=== PATIENT | female | born 1990 | race Two or more races ===

== ENCOUNTER 2018-01-15 15:48 | Emergency (ER) | payer SELFPAY ==
[2018-01-15] MEDS ORDERED: Ketorolac 30 MG/ML SDV IVPUSH ONE (17:03)
[2018-01-15] MEDS ORDERED: Sodium Chloride 0.9% 1,000 ML IV ONE (17:03)
[2018-01-15] MEDS ORDERED: Ondansetron 4 MG/2 ML SDV IVPUSH ONE (17:03)
--- NOTE | 2018-01-15 17:19 | EDM.PDOC ---
ED HPI GENERAL MEDICAL PROBLEM - General Chief Complaint: Abdominal Pain Stated Complaint: ABDOMINAL PAIN Time Seen by Provider: 01/15/18 16:06 Source of Information: Reports: Patient History Limitations: Reports: No Limitations - History of Present Illness INITIAL COMMENTS - FREE TEXT/NARRATIVE: HISTORY AND PHYSICAL: History of present illness: Patient is a 27-year-old female who presents to the emergency room with complaints of low abdominal pain, nausea and vomiting. She states she had an on 12/24/2017 at 19 weeks gestation. She states she had minimal cramping and bleeding post and has not had any complications or pain until this last week. Currently denies any vaginal bleeding or discharge. She denies any fever, chills, chest pain, shortness of breath or cough. Denies any constipation, diarrhea or dysuria. Review of systems: As per history of present illness and below otherwise all systems reviewed and negative. Past medical history: As per history of present illness and as reviewed below otherwise noncontributory. Surgical history: As per history of present illness and as reviewed below otherwise noncontributory. Social history: No reported history of drug or alcohol abuse. Family history: As per history of present illness and as reviewed below otherwise noncontributory. Physical exam: General: Well-developed and well-nourished 27-year-old female. Alert and oriented. Nontoxic appearing and in no acute distress. HEENT: Atraumatic, normocephalic, pupils equal and reactive bilaterally, negative for conjunctival pallor or scleral icterus, mucous membranes moist, throat clear, neck supple, nontender, trachea midline. No drooling or trismus noted. No meningeal signs Lungs: Clear to auscultation, breath sounds equal bilaterally, chest nontender. Heart: S1S2, regular rate and rhythm without overt murmur Abdomen: Soft, nondistended, mild tenderness to the mid suprapubic area. Negative for masses or hepatosplenomegaly. Negative for costovertebral tenderness. Pelvis: Stable nontender. Genitourinary: Deferred. Rectal: Deferred. Skin: Intact, warm, dry. No lesions or rashes noted. Extremities: Atraumatic, negative for cords or calf pain. Neurovascular unremarkable. Neuro: Awake, alert, oriented. Cranial nerves II through XII unremarkable. Cerebellum unremarkable. Motor and sensory unremarkable throughout. Exam nonfocal. Notes: Patient's physical exam is unremarkable with the exception of mild suprapubic tenderness. Vital signs are stable. We'll do routine lab work along with an ultrasound. Patient is agreeable to plan of care. Lab called and stated that they had a faint positive on their urine . She states they repeated this twice with the same result. She states that they recommend a serum be added at this time. Serum is positive; but this is likely due to her residual HCG from previous . Quant HCG added to labs for patient to follow up. US tech was made aware of her circumstances and will look for viable along with retained products Sounds shows no evidence of an intrauterine . Normal ovaries and adnexa. No gross free fluid. Endometrium is 8 mm in thickness and slightly hypervascular. No fluid or debris as noted in the endometrial canal. I did share with patient the diagnostic findings of today. I would like her to follow up with an AGRICULT[employer] EQUIPMENT SALES MANAGER in the next 1-2 days. This was explained in great detail with the patient. She voices understanding and is agreeable to plan of care. Denies any further questions or concerns at this time. Dr Bone was consulted on this case. She recommends that the patient have a CT of the abdomen and pelvis. She would like her to follow-up in one of the OB/ [facility] clinics for further evaluation and repeat quantative HCG. I did share this information with the patient. She declines the CT of the abdomen and pelvis. She states she was concerned that having an could "hurt my inside organs". She states she is returning to [place] and will follow up there. We discussed signs and symptoms that would prompt her to return to the emergency room. She voices understanding and is agreeable to plan of care. Denies any further questions or concerns at this time. Diagnostics: CBC, CMP, UA, HCGU, Transvaginal US, serum US Therapeutics: IV fluids, Zofran, Toradol Prescription: None Impression: Abdominal Pain Plan: 1. Tylenol and/or ibuprofen as needed for pain and fever management. 2. Please follow-up with AGRICULTURAL EQUIPMENT SALES MANAGER for women's care provider for further evaluation and management in the next 1-2 days. Return to the ED as needed and as discussed. Definitive disposition and diagnosis as appropriate pending reevaluation and review of above. lower abdomen Pain Score (Numeric/FACES): 6 - Related Data Allergies Allergy/AdvReac Type Severity Reaction Status Date / Time No Known Allergies Allergy Verified 01/15/18 16:53 Home Meds: Home Meds #103/Iron Fumarate/Fa [ ] 1 tab PO DAILY 01/15/18 [ History] Past Medical History A[employer] EQUIPMENT SALES MANAGER History: Reports: Spontaneous Social & Family History - Family History Family Medical History: Noncontributory - Tobacco Use Smoking Status *Q: Never Smoker - Recreational Drug Use Recreational Drug Use: No ED ROS GENERAL - Review of Systems Review Of Systems: ROS reveals no pertinent complaints other than HPI. ED EXAM, GI/ABD - Physical Exam Exam: See Below (See dictation) Course - Vital Signs Last Recorded V/S: Last Vital Signs Temp 98.3 F 01/15/18 16:54 Pulse 83 01/15/18 18:15 Resp 18 01/15/18 18:15 BP 111/59 L 01/15/18 18:15 Pulse Ox 100 01/15/18 16:54 - Orders/Labs/Meds Orders: Active Orders 24 hr Category Date Time Status Abdomen Pelvis w Cont [CT] Stat Exams 01/15/18 19:37 Ordered OB 1st Tri Sgl 1st Gest [US] Stat Exams 01/15/18 18:23 Taken Transvaginal Non OB [US] Stat Exams 01/15/18 17:19 Ordered Labs: Laboratory Tests 01/15/18 01/15/18 01/15/18 Range/Units 16:55 16:55 17:14 WBC 8.02 (4.0-11.0) K/uL RBC 4.64 (4.30-5.90) M/uL Hgb 13.2 (12.0-16.0) g/dL Hct 40.2 (36.0-46.0) % MCV 86.6 (80.0-98.0) fL MCH 28.4 (27.0-32.0) pg MCHC 32.8 (31.0-37.0) g/dL RDW Std Deviation 43.7 (28.0-62.0) fl RDW Coeff of Imer 14 (11.0-15.0) % Plt Count 304 (150-400) K/uL MPV 9.10 (7.40-12.00) fL Neut % (Auto) 58.4 (48.0-80.0) % Lymph % (Auto) 30.4 (16.0-40.0) % Sterling % (Auto) 7.7 (0.0-15.0) % Eos % (Auto) 3.0 (0.0-7.0) % Baso % (Auto) 0.5 (0.0-1.5) % Neut # (Auto) 4.7 (1.4-5.7) K/uL Lymph # (Auto) 2.4 (0.6-2.4) K/uL Sterling # (Auto) 0.6 (0.0-0.8) K/uL Eos # (Auto) 0.2 (0.0-0.7) K/uL Baso # (Auto) 0.0 (0.0-0.1) K/uL Nucleated RBC % 0.0 /100WBC Nucleated RBCs # 0 K/uL Sodium (136-145) mmol/L Potassium (3.5-5.1) mmol/L Chloride (98-107) mmol/L Carbon Dioxide (21.0-32.0) mmol/L BUN (7.0-18.0) mg/dL Creatinine (0.6-1.0) mg/dL Est Cr Clr Drug Dosing mL/min Estimated GFR (MDRD) ml/min Glucose (74-106) mg/dL Calcium (8.5-10.1) mg/dL Total Bilirubin (0.2-1.0) mg/dL AST (15-37) IU/L ALT (14-63) IU/L Alkaline Phosphatase (46-116) U/L Total Protein (6.4-8.2) g/dL Albumin (3.4-5.0) g/dL Globulin (2.0-3.5) g/dL Albumin/Globulin Ratio (1.3-2.8) HCG, Qual (NEG) HCG, Quant mIU/mL Urine Color YELLOW Urine Appearance CLEAR Urine pH 6.0 (5.0-8.0) Ur Specific [place] 1.025 (1.001-1.035) Urine Protein NEGATIVE (NEGATIVE) mg/dL Urine Glucose (UA) NEGATIVE (NEGATIVE) mg/dL Urine Ketones NEGATIVE (NEGATIVE) mg/dL Urine Occult Blood TRACE-INTACT (NEGATIVE) Urine Nitrite NEGATIVE (NEGATIVE) Urine Bilirubin NEGATIVE (NEGATIVE) Urine Urobilinogen 0.2 (<2.0) EU/dL Ur Leukocyte Esterase NEGATIVE (NEGATIVE) Urine RBC 0-2 (0-2/HPF) Urine WBC 0-2 (0-5/HPF) Ur Epithelial Cells MODERATE (NONE-FEW) Urine Bacteria FEW (NEGATIVE) Urine HCG, Qual POSITIVE (NEGATIVE) Blood Type 01/15/18 01/15/18 01/15/18 Range/Units 17:14 17:14 17:14 WBC (4.0-11.0) K/uL RBC (4.30-5.90) M/uL Hgb (12.0-16.0) g/dL Hct (36.0-46.0) % MCV (80.0-98.0) fL MCH (27.0-32.0) pg MCHC (31.0-37.0) g/dL RDW Std Deviation (28.0-62.0) fl RDW Coeff of Imer (11.0-15.0) % Plt Count (150-400) K/uL MPV (7.40-12.00) fL Neut % (Auto) (48.0-80.0) % Lymph % (Auto) (16.0-40.0) % Sterling % (Auto) (0.0-15.0) % Eos % (Auto) (0.0-7.0) % Baso % (Auto) (0.0-1.5) % Neut # (Auto) (1.4-5.7) K/uL Lymph # (Auto) (0.6-2.4) K/uL Sterling # (Auto) (0.0-0.8) K/uL Eos # (Auto) (0.0-0.7) K/uL Baso # (Auto) (0.0-0.1) K/uL Nucleated RBC % /100WBC Nucleated RBCs # K/uL Sodium 139 (136-145) mmol/L Potassium 4.0 (3.5-5.1) mmol/L Chloride 103 (98-107) mmol/L Carbon Dioxide 29.7 (21.0-32.0) mmol/L BUN 14 (7.0-18.0) mg/dL Creatinine 0.7 (0.6-1.0) mg/dL Est Cr Clr Drug Dosing 95.48 mL/min Estimated GFR (MDRD) > 60.0 ml/min Glucose 106 (74-106) mg/dL Calcium 8.8 (8.5-10.1) mg/dL Total Bilirubin 0.6 (0.2-1.0) mg/dL AST 19 (15-37) IU/L ALT 31 (14-63) IU/L Alkaline Phosphatase 66 (46-116) U/L Total Protein 7.9 (6.4-8.2) g/dL Albumin 4.0 (3.4-5.0) g/dL Globulin 3.9 H (2.0-3.5) g/dL Albumin/Globulin Ratio 1.0 L (1.3-2.8) HCG, Qual POSITIVE H (NEG) HCG, Quant mIU/mL Urine Color Urine Appearance Urine pH (5.0-8.0) Ur Specific [place] (1.001-1.035) Urine Protein (NEGATIVE) mg/dL Urine Glucose (UA) (NEGATIVE) mg/dL Urine Ketones (NEGATIVE) mg/dL Urine Occult Blood (NEGATIVE) Urine Nitrite (NEGATIVE) Urine Bilirubin (NEGATIVE) Urine Urobilinogen (<2.0) EU/dL Ur Leukocyte Esterase (NEGATIVE) Urine RBC (0-2/HPF) Urine WBC (0-5/HPF) Ur Epithelial Cells (NONE-FEW) Urine Bacteria (NEGATIVE) Urine HCG, Qual (NEGATIVE) Blood Type O POSITIVE 01/15/18 Range/Units 19:20 WBC (4.0-11.0) K/uL RBC (4.30-5.90) M/uL Hgb (12.0-16.0) g/dL Hct (36.0-46.0) % MCV (80.0-98.0) fL MCH (27.0-32.0) pg MCHC (31.0-37.0) g/dL RDW Std Deviation (28.0-62.0) fl RDW Coeff of Imer (11.0-15.0) % Plt Count (150-400) K/uL MPV (7.40-12.00) fL Neut % (Auto) (48.0-80.0) % Lymph % (Auto) (16.0-40.0) % Sterling % (Auto) (0.0-15.0) % Eos % (Auto) (0.0-7.0) % Baso % (Auto) (0.0-1.5) % Neut # (Auto) (1.4-5.7) K/uL Lymph # (Auto) (0.6-2.4) K/uL Sterling # (Auto) (0.0-0.8) K/uL Eos # (Auto) (0.0-0.7) K/uL Baso # (Auto) (0.0-0.1) K/uL Nucleated RBC % /100WBC Nucleated RBCs # K/uL Sodium (136-145) mmol/L Potassium (3.5-5.1) mmol/L Chloride (98-107) mmol/L Carbon Dioxide (21.0-32.0) mmol/L BUN (7.0-18.0) mg/dL Creatinine (0.6-1.0) mg/dL Est Cr Clr Drug Dosing mL/min Estimated GFR (MDRD) ml/min Glucose (74-106) mg/dL Calcium (8.5-10.1) mg/dL Total Bilirubin (0.2-1.0) mg/dL AST (15-37) IU/L ALT (14-63) IU/L Alkaline Phosphatase (46-116) U/L Total Protein (6.4-8.2) g/dL Albumin (3.4-5.0) g/dL Globulin (2.0-3.5) g/dL Albumin/Globulin Ratio (1.3-2.8) HCG, Qual (NEG) HCG, Quant 7.0 mIU/mL Urine Color Urine Appearance Urine pH (5.0-8.0) Ur Specific [place] (1.001-1.035) Urine Protein (NEGATIVE) mg/dL Urine Glucose (UA) (NEGATIVE) mg/dL Urine Ketones (NEGATIVE) mg/dL Urine Occult Blood (NEGATIVE) Urine Nitrite (NEGATIVE) Urine Bilirubin (NEGATIVE) Urine Urobilinogen (<2.0) EU/dL Ur Leukocyte Esterase (NEGATIVE) Urine RBC (0-2/HPF) Urine WBC (0-5/HPF) Ur Epithelial Cells (NONE-FEW) Urine Bacteria (NEGATIVE) Urine HCG, Qual (NEGATIVE) Blood Type Meds: Medications Discontinued Medications Generic Name Dose Route Start Last Admin Trade Name Janusz PRN Reason Stop Dose Admin Sodium Chloride 1,000 mls @ 999 mls/hr 01/15/18 17:03 01/15/18 17:14 Normal Saline IV 01/15/18 18:03 999 mls/hr STAT ONE Administration Ketorolac Tromethamine 30 mg 01/15/18 17:03 01/15/18 17:21 Toradol IVPUSH 01/15/18 17:04 30 mg ONETIME ONE Administration Ondansetron HCl 4 mg 01/15/18 17:03 01/15/18 17:16 Zofran IVPUSH 01/15/18 17:04 4 mg ONETIME ONE Administration Departure - Departure Time of Disposition: 19:52 Disposition: Home, Self-Care 01 Clinical Impression: History of Abdominal pain Qualifiers: Abdominal location: lower abdomen, unspecified Qualified Code(s): R10.30 - Lower abdominal pain, unspecified - Discharge Information Instructions: Abdominal Pain, Adult, [id number] Referrals: PCP,None [Primary Care Provider] - Forms: ED Department Discharge Additional Instructions: The following information is given to patients seen in the emergency department who are being discharged to home. This information is to outline your options for follow-up care. We provide all patients seen in our emergency department with a follow-up referral. The need for follow-up, as well as the timing and circumstances, are variable depending upon the specifics of your emergency department visit. If you don't have a primary care physician on staff, we will provide you with a referral. We always advise you to contact your personal physician following an emergency department visit to inform them of the circumstance of the visit and for follow-up with them and/or the need for any referrals to a consulting specialist. The emergency department will also refer you to a specialist when appropriate. This referral assures that you have the opportunity for follow-up care with a specialist. All of these measure are taken in an effort to provide you with optimal care, which includes your follow-up. Under all circumstances we always encourage you to contact your private physician who remains a resource for coordinating your care. When calling for follow-up care, please make the office aware that this follow-up is from your recent emergency room visit. If for any reason you are refused follow-up, please contact the [facility] at and asked to speak to the emergency department charge nurse. [facility] Primary Care: [facility] [address], [place] [address] [facility] [address] [place] [address] 1. Tylenol and/or ibuprofen as needed for pain and fever management. 2. Please follow-up with AGRICULTURAL EQUIPMENT SALES MANAGER for women's care provider for further evaluation and management in the next 1-2 days. Return to the ED as needed and as discussed. - My Orders Last 24 Hours: My Active Orders 01/15/18 17:19 Transvaginal Non OB [US] Stat 01/15/18 18:23 OB 1st Tri Sgl 1st Gest [US] Stat 01/15/18 19:37 Abdomen Pelvis w Cont [CT] Stat - Assessment/Plan Last 24 Hours: My Active Orders 01/15/18 17:19 Transvaginal Non OB [US] Stat 01/15/18 18:23 OB 1st Tri Sgl 1st Gest [US] Stat 01/15/18 19:37 Abdomen Pelvis w Cont [CT] Stat
[2018-01-15 17:42] LABS: CHLORIDE,CL 103 mmol/L (98-107); SODIUM,NA 139 mmol/L (136-145)
--- NOTE | 2018-01-16 09:32 | US ---
EXAM DATE: 01/15/18 PATIENT'S AGE: 27 Patient: BRYON KATHLEEN Facility: [place], [place] Site . Site : 1990 Study: US OB Pelvis [id number]/[id number] 6:52:35 PM Ordering Physician: Doctor Lee Final Report: INDICATION: Status post elective . At 19 weeks 3 weeks prior. Generalized abdominal pain. Positive urine . TECHNIQUE: Ultrasound OB pelvis transvaginal. Real time gtz scale imaging of the pelvis was performed. COMPARISON: None FINDINGS: Sonographic imaging demonstrates no evidence of an intrauterine . No fluid or debris in the endometrial canal. The endometrium measures 8 millimeters in thickness. Minimal hypervascularity of the endometrium. The cervix is closed. The myometrium appears normal. The ovaries are of normal size. There are no suspicious fluid collections noted in the cul-de-sac. IMPRESSION: No evidence of an intrauterine . Normal ovaries and adnexa. No gross free fluid. The endometrium measures 8 millimeters in thickness and is slightly hypervascular. No fluid or debris in the endometrial canal. Dictated by Rk Jonas MD @ 01/15/2018 7:04:05 PM Dictated by: Rk Jonas MD @ 01/15/2018 19:06:00 (Electronic Signature) Report Signed by Proxy. SARAN
== END 2018-01-15 20:15 | disposition home or self-care (01) ==
LOC: MW.ED 15:48
DX: R10.30 Lower abdominal pain, unspecified (principal); Z87.59 Personal history of other complications of pregnancy, childbirth and the puerperium
CPT/HCPCS: 36415; 76801; 80053; 81001; 81025; 84702; 84703; 85025; 86900; 86901; 96361; 96374; 96375; 99284; J1885; J2405; J7040; 99283